=== PATIENT | female | born 1995 | race Two or more races ===

== ENCOUNTER 2017-05-17 04:21 | Emergency (ER) | payer BC ==
[2017-05-17] MEDS ORDERED: MAG HYDROX/AL HYDROX/SIMETH 30 ML UDCUP PO ONE (04:55)
[2017-05-17] MEDS ORDERED: LIDOCAINE 2% VISCOUS 15 ML UDCUP PO ONE (04:55)
--- NOTE | 2017-05-17 05:06 | EDPHY ---
H & P Stated Complaint: CP, excessive salivation, SOB, anxiety. Time Seen by Provider: 05/17/17 04:49 HPI/ROS: HPI The patient presents with chest pain which began at 3:00 a.m. And awoke her from sleep. She describes a squeezing and tight as well as sharp sensation of her mid chest which has been constant ever since it began. This was associated with gagging and initially shortness of breath which then subsided. The chest pain is worse with changes in position. She has not had any cough, fever, rhinorrhea. She has not had any recent airplane flights, long car rides, personal or family history of DVT PE. REVIEW OF SYSTEMS Constitutional: No fever, no chills. Eyes: No discharge. ENT: No sore throat. Cardiovascular: Positive for chest pain, no palpitations. Respiratory: No cough, no shortness of breath. Gastrointestinal: No abdominal pain, no vomiting. Genitourinary: No hematuria. Musculoskeletal: No back pain. Skin: No rashes. Neurological: No headache. PMHx: Healthy Soc Hx: College student PHYSICAL General Appearance: Alert, no distress Eyes: Pupils equal and round no pallor or injection ENT, Mouth: Mucous membranes moist Respiratory: There are no retractions, lungs are clear to auscultation Cardiovascular: Regular rate and rhythm Gastrointestinal: Abdomen is soft and non-tender, no masses, bowel sounds normal Neurological: A&O, moves all extremities Skin: Warm and dry, no rashes Musculoskeletal: Neck is supple non tender Extremities: symmetrical, full range of motion Psychiatric: Patient is oriented X 3, there is no agitation Source: Patient Exam Limitations: No limitations - Personal History Current Tetanus/Diphtheria Vaccine: Yes Current Tetanus Diphtheria and Acellular Pertussis (TDAP): Yes - Medical/Surgical History Hx Asthma: No Hx Chronic Respiratory Disease: No Hx Diabetes: No Hx Cardiac Disease: No Hx Renal Disease: No Hx Cirrhosis: No Hx Alcoholism: No Hx HIV/AIDS: No Hx Splenectomy or Spleen Trauma: No Other PMH: Depression, anxiety. - Social History Smoking Status: Never smoked Constitutional: Initial Vital Signs Temperature (C) 37 C 05/17/17 04:23 Heart Rate 89 05/17/17 04:23 Respiratory Rate 16 05/17/17 04:23 Blood Pressure 114/84 H 05/17/17 04:23 O2 Sat (%) 98 05/17/17 04:23 O2 Delivery Mode Room Air Allergies/Adverse Reactions: No Known Allergies Allergy (Unverified 05/17/17 04:27) Home Medications: Medication Instructions Recorded Nnamdi 05/17/17 Wellbutrin 100mg (*) 05/17/17 Zoloft 100mg (*) 05/17/17 Medical Decision Making - Diagnostics EKG Interpretation: EKG: Complete interpretation has been separately recorded in the [facility] archive. Summary impression: Normal sinus rhythm Imaging Results: Chest x-ray two view shows no cardiomegaly, no effusion, no pneumonia, interpreted by me, radiology interpretation is pending. Imaging: I viewed and interpreted images myself Differential Diagnosis: This is a 22-year-old female who presents with chest pain which awoke her from sleep at 3:00 a.m.. On exam, she has normal vital signs, is well-appearing, and has an otherwise unremarkable exam. Differential diagnosis includes costochondritis, GERD, anxiety. I doubt PE, pneumonia, pneumothorax, ACS. Pericarditis is a consideration. In the emergency department, patient received a GI cocktail with some improvement in her symptoms. Chest x-ray and EKG were checked and were normal. I feel she is likely suffering from costochondritis or GERD. I have advised a bland diet and ibuprofen as needed for pain. If she is not better in 1-2 days she is to return to the emergency department. - Data Points Medications Given: Discontinued Medications Al Hydroxide/Mg Hydroxide (Maalox Susp) 30 ml PO EDNOW ONE Stop: 05/17/17 04:56 Last Admin: 05/17/17 05:04 Dose: 30 ml Lidocaine (Lidocaine 2% Viscous) 5 ml PO EDNOW ONE Stop: 05/17/17 04:56 Last Admin: 05/17/17 05:04 Dose: 5 ml Departure - Departure Disposition: Home, Routine, Self-Care Clinical Impression: Chest pain Qualifiers: Chest pain type: unspecified Qualified Code(s): R07.9 - Chest pain, unspecified Condition: Good Instructions: Chest Pain (ED), Diet for Stomach Ulcers and Gastritis (ED) Additional Instructions: I recommend you take ibuprofen 400 mg every 6 hr as needed for pain. Please maintain a bland diet. Please return to the emergency department if your worse in any way. Referrals: PATRICK Santos,. [Clinic] - As per Instructions
[2017-05-17 06:02] VITALS: BP 111/70; PULSE 80; RESP 18; TEMP 97.7; O2SAT 99
--- NOTE | 2017-05-19 16:28 | CPEKG ---
Heart Rate: 71 RR Interval: 845 P-R Interval: 160 QRSD Interval: 84 QT Interval: 396 QTC Interval: 431 P [place]: 54 QRS [place]: 40 T Wave [place]: 22 EKG Severity - NORMAL ECG - EKG Impression: SINUS RHYTHM Electronically Signed By: Adonay Blount 19-May-2017 18:34:23
== END 2017-05-17 06:02 | disposition home or self-care (01) ==
DX: R07.9 Chest pain, unspecified (principal)